=== PATIENT | female | born 2000 | race Two or more races ===

== ENCOUNTER 2023-11-18 21:09 | Emergency (ER) | payer SELFPAY ==
--- NOTE | 2023-11-18 21:17 | ECG_ITS ---
Test Reason : chest pain Blood Pressure : / mmHG Vent. Rate : 090 BPM Atrial Rate : 090 BPM P-R Int : 166 ms QRS Dur : 074 ms QT Int : 354 ms P-R-T Axes : 062 063 031 degrees QTc Int : 433 ms Normal sinus rhythm Normal ECG No previous ECGs available Referred By: Generic ED Physician Electronically Signed By:SHAUNNA GOODWIN MD
[2023-11-18 21:27] VITALS: BP 111/59; PULSE 87; RESP 14; TEMP 36.2; O2SAT 100; BMI 24.0
[2023-11-18 22:15] LABS: MANUAL DIFF FLAG NO
[2023-11-18 22:16] LABS: Basophils Absolute Auto 0.1 X10*3/uL (0.0-0.2); Basophils Percent Auto 0.8 % (0-2); Eosinophils Absolute Auto 0.1 X10*3/uL (0.0-0.4); Eosinophils Percent Auto 1.9 % (0-4); Hemoglobin 10.3 g/dl (12.0-16.0); Imm Gran Abs Auto 0.01 X10*3/uL (0.00-0.03); Imm Gran Pct Auto 0.2 % (0.0-0.4); Lymphocytes Absolute Auto 3.1 X10*3/uL (1.2-4.9); Mean Corpuscular HGB Conc 31.2 g/dl (31.0-35.0); Mean Corpuscular Hemoglobin 26.8 pg (27.0-33.0); Mean Corpuscular Volume 85.9 fL (80.0-98.0); Mean Platelet Volume 9.7 fL (9.4-12.3); Monocytes Absolute Auto 0.7 X10*3/uL (0.1-1.2); Monocytes Percent Auto 11.5 % (2-11); Neutrophils Absolute Auto 2.3 x10*3/uL (2.0-8.3); Neutrophils Percent Auto 36.6 % (45-73); Platelet Count 396 X10*3/uL (160-400); Red Blood Count 3.84 X10*6/uL (4.20-5.50); Red Cell Distribution Width 14.3 % (11.0-16.0); White Blood Count 6.4 X10*3/uL (4.8-10.8)
[2023-11-18 22:31] LABS: Alanine Aminotransferase 16 U/L (0-31); Albumin Level 4.4 g/dL (3.5-5.0); Alkaline Phosphatase 78 U/L (39-117); Anion Gap 10 (12-20); Aspartate Amino Transferase 26 U/L (5-31); Bilirubin Total 0.2 mg/dL (0.0-1.0); Blood Urea Nitrogen 12 mg/dL (9-16); Calcium 9.5 mg/dL (8.4-10.2); Carbon Dioxide 25 mmol/L (22-29); Chloride 106 mmol/L (96-108); Creatinine Clr Calc Pharmacy 129.1; Estimated Glomerular Filt Rate > 60; Glucose Random 105 mg/dL (60-115); Potassium 4.4 mmol/L (3.3-5.1); Sodium 137 mmol/L (135-145); Total Protein 8.5 g/dL (6.5-8.0)
[2023-11-18 22:36] LABS: COVID-19 Test Negative (Negative); IDNOW Serial# 08D9AD1C; IDNOW Serial# 152EDE1D; Influenza A Negative (Negative); Influenza B2 Negative (Negative)
[2023-11-18 22:39] LABS: Troponin-I High Sensitivity < 2.7 ng/L (<3.5-17.0)
--- NOTE | 2023-11-19 02:05 | ED.CHESTPAIN ---
HPI - Chest Pain General Chief Complaint: Chest Pain Stated Complaint: chest pain Time Seen by Provider: 11/19/23 01:27 Source: patient and check viewer Mode of arrival: ambulatory History of Present Illness HPI narrative: 23-year-old female without significant past medical history presents with onset of lower mid chest wall pain as well as left lower chest wall pain that began after she helped move some furniture earlier this evening, states that the pain worsens with deep inspiration and has not been associated with any fever, chills, recent cough. Patient states that the pain has started to improve while waiting to be seen and that there are no associated symptoms of dizziness/shortness of breath/nausea. Related Data Allergies Allergy/AdvReac Type Severity Reaction Status Date / Time No Known Allergies Allergy Verified 11/18/23 21:25 Review of Systems Review of Systems: Pertinent positives and negatives as stated in HPI [facility] Past Medical History Source: nursing notes reviewed Social History Social History Advance Directives: No Advance Directives Information Provided: No Physical Exam Vital Signs: Vital Signs: Last Vital Signs Temp 97.1 F 11/18/23 21:27 Pulse 87 11/18/23 21:27 Resp 14 11/18/23 21:27 BP 111/59 L 11/18/23 21:27 Pulse Ox 100 11/18/23 21:27 O2 Del Method Room Air 11/18/23 21:27 BMI result Body Mass Index 24.0 VITAL SIGNS: Reviewed. GENERAL: Well developed, well nourished, in no acute distress. HEAD: Normocephalic/atraumatic EYES: PERRLA, EOMI EARS: Ext canals without abnormality NOSE: Nares patent bilateral OROPHARYNX: no oral lesions noted, posterior pharynx clear NECK: Supple, no adenopathy LUNGS: Normal breath sounds. No adventitious sounds or accessory muscle use. SpO2<100>; CHEST WALL: Reproducible pain on palpation, there are no deformities or crepitus CARDIOVASCULAR: Regular rate and rhythm without noted murmurs ABDOMEN: Soft, non-tender, non-distended with bowel sounds. MUSCULOSKELETAL: No tenderness, deformities, or effusions noted on gross inspection. EXTREMITIES: No cyanosis, clubbing or edema. SKIN: Inspection of the skin reveals no rashes NEUROLOGIC: Alert and oriented x 4. Strength and sensation to light touch were grossly intact x 4. Medications Administered Discontinued Medications Generic Name Dose Route Start Last Admin Trade Name Marine PRN Reason Stop Dose Admin Acetaminophen 975 mg 11/19/23 02:04 11/19/23 02:25 Acetaminophen 325 Mg Tablet PO 11/19/23 02:05 975 mg ONCE ONE Administration Ibuprofen 400 mg 11/19/23 02:04 11/19/23 02:25 Ibuprofen 400 Mg Tablet PO 11/19/23 02:05 400 mg ONCE ONE Administration Lidocaine 1 patch 11/19/23 02:04 11/19/23 02:25 Lidocaine 4 % Patch Adh..Patch TRANSDERMA 11/19/23 02:05 1 patch ONCE ONE Administration Protocol Medical Decision Making Medical Decision Making MDM Narrative: 23-year-old female with history and clinical presentation, DDX: Musculoskeletal/no clinical suspicion for PE or cardiopulmonary. I reviewed all investigations and hematologic indices are negative for leukocytosis or left shift, there is a normocytic anemia but no thrombocytopenia. Chemistry disease are negative for SANDRO or electrolyte/liver enzyme derangements and high sensitivity troponin is undetectable. Viral testing is negative for COVID-19/influenza. Differential Diagnosis Differential Diagnoses: The differential diagnosis associated with the presentation includes Please see the discussion above Admission/Observation Consideration of admission/observation: Escalation of care including admission/observation considered Please see the discussion above Lab Data [facility] Lab Attestation statement: I reviewed the patient's lab results. Please see the discussion above 11/18/23 22:09 11/18/23 22:09 Labs: Lab Results 11/18/23 Range/Units 22:09 WBC 6.4 (4.8-10.8) X10*3/uL RBC 3.84 L (4.20-5.50) X10*6/uL Hgb 10.3 L (12.0-16.0) g/dl Hct 33.0 L (37.0-47.0) % MCV 85.9 (80.0-98.0) fL MCH 26.8 L (27.0-33.0) pg MCHC 31.2 (31.0-35.0) g/dl RDW 14.3 (11.0-16.0) % Plt Count 396 (160-400) X10*3/uL MPV 9.7 (9.4-12.3) fL Immature Gran % (Auto) 0.2 (0.0-0.4) % Neut % (Auto) 36.6 L (45-73) % Lymph % (Auto) 49.0 H (20-40) % Cotton % (Auto) 11.5 H (2-11) % Eos % (Auto) 1.9 (0-4) % Baso % (Auto) 0.8 (0-2) % Lymph # (Auto) 3.1 (1.2-4.9) X10*3/uL Cotton # (Auto) 0.7 (0.1-1.2) X10*3/uL Eos # (Auto) 0.1 (0.0-0.4) X10*3/uL Baso # (Auto) 0.1 (0.0-0.2) X10*3/uL Abs Immat Gran (auto) 0.01 (0.00-0.03) X10*3/uL Absolute Neuts (auto) 2.3 (2.0-8.3) x10*3/uL Absolute Nucleated RBC 0.000 (0.0-0.012) X10*3/uL Nucleated RBC % (auto) 0.0 (0.0-0.2) /100WBC Sodium 137 (135-145) mmol/L Potassium 4.4 (3.3-5.1) mmol/L Chloride 106 (96-108) mmol/L Carbon Dioxide 25 (22-29) mmol/L Anion Gap 10 L (12-20) BUN 12 (9-16) mg/dL Creatinine 0.77 (0.5-1.4) mg/dL Estim Creat Clear Calc 129.1 Estimated GFR > 60 Random Glucose 105 (60-115) mg/dL Calcium 9.5 (8.4-10.2) mg/dL Total Bilirubin 0.2 (0.0-1.0) mg/dL AST 26 (5-31) U/L ALT 16 (0-31) U/L Alkaline Phosphatase 78 (39-117) U/L Troponin I High Sens < 2.7 (<3.5-17.0) ng/L Total Protein 8.5 H (6.5-8.0) g/dL Albumin 4.4 (3.5-5.0) g/dL COVID-19 ([facility]ER) Negative (Negative) COVID-19 Clin Com See Note Influenza Type A (QUIANA) Negative (Negative) Influenza Type B (QUIANA) Negative (Negative) Influenza A & B Note See Note Independent Interpretation I performed an independent interpretation of an: EKG Interpretation: Normal sinus rhythm, HR-90, no STEMI, MA/QRS/QTC are within normal limits. Discharge Plan Discharge Clinical Impression: Atypical chest pain, Musculoskeletal pain, Costochondritis Patient Disposition: Home, Self-Care Instructions: Costochondritis (ED), Musculoskeletal Pain (ED), Chest Wall Pain (ED) Additional Instructions: 1. Recommandez du Tylenol/ibuprof?ne en vente ran si n?cessaire pour contr?ler la douleur. Jason prendra environ 5 ? 7 jours pour s?am?liorer. Retournez aux urgences en alexa d'aggravation tutu sympt?mes. 1. Recommend [id number] Tylenol/ibuprofen as needed for pain control. This will take approximately 5-7 days to improve. Return to the ER for any worsening symptoms.
[2023-11-19] MEDS: Lidocaine 4 % Patch ADH..PATCH 1 PATCH TRANSDERMA (02:25)
[2023-11-19] MEDS: Acetaminophen 325 MG TABLET 975 MG PO (02:25)
[2023-11-19] MEDS: Ibuprofen 400 MG TABLET PO (02:25)
[2023-11-19 02:34] VITALS: BP 118/57; PULSE 73; RESP 12; TEMP 36.3; O2SAT 100
== END 2023-11-19 02:40 | disposition home or self-care (01) ==
PROVIDERS: Emergency Provider Student in an Organized Health Care Education/Training Program
DX: R07.89 Other chest pain (principal); M79.10 Myalgia, unspecified site; M94.0 Chondrocostal junction syndrome [Tietze]; Z11.52 Encounter for screening for COVID-19; Z79.899 Other long term (current) drug therapy
CPT/HCPCS: 80053; 84484; 85025; 87502; 87635; 93005; 99283; 99284

== ENCOUNTER → 2023-11-18 21:17 | Outpatient (BNV) | payer SELFPAY | PROVIDERS: Emergency Provider Student in an Organized Health Care Education/Training Program; Visit Provider Internal Medicine Cardiovascular Disease | DX: R07.9 Chest pain, unspecified (principal) | CPT/HCPCS: 93010 ==